=== PATIENT | female | born 1990 | race African-American/Black ===

== ENCOUNTER 2020-03-11 17:00 | Emergency (ER) | payer MEDICAID ==
[~2020-03-11] VITALS: Ht 167.6 cm; Wt 132.0 kg
[2020-03-11] MEDS ORDERED: IBUPROFEN 800MG TABLET PO ONE (18:00)
[2020-03-11 18:12] VITALS: BP 136/82
== END 2020-03-11 21:00 | disposition home or self-care (01) ==
LOC: ER 17:00
DX: S93.491A Sprain of other ligament of right ankle, initial encounter (principal); R42 Dizziness and giddiness; Z88.6 Allergy status to analgesic agent; W01.0XXA Fall on same level from slipping, tripping and stumbling without subsequent striking against object, initial encounter; Y93.89 Activity, other specified; Y92.480 Sidewalk as the place of occurrence of the external cause
CPT/HCPCS: 29515; 73610; 99284